=== PATIENT | female | born 1990 | race Caucasian/White ===

== ENCOUNTER 2020-05-24 16:00 | Emergency (ER) | payer BC ==
[~2020-05-24] VITALS: Ht 157.5 cm; Wt 90.9 kg
[2020-05-24 16:20] VITALS: BP 139/94
== END 2020-05-24 18:07 | disposition home or self-care (01) ==
LOC: ER 16:00
DX: Z20.828 Contact with and (suspected) exposure to other viral communicable diseases (principal); Z00.8 Encounter for other general examination; I10 Essential (primary) hypertension
CPT/HCPCS: 36415; 99281